=== PATIENT | male | born 1955 | race Caucasian/White ===

== ENCOUNTER 2024-04-28 15:11 | Emergency (ER) | payer MEDICARE, BC ==
[2024-04-28] MEDS ORDERED: Bacitracin Oint 1 GM U/D Packet TOP ONE (15:54)
[2024-04-28] MEDS: Lidocaine 1% 5 ML VIAL INJECT ONE (16:00)
[2024-04-28] MEDS: Diphtheria,Pertussis(Acell),Tetanus Vaccine 0.5 ML Syringe IM ONE (16:21)
== END 2024-04-28 16:12 | disposition home or self-care (01) ==
LOC: DL.ED 15:11
DX: S60.352A Superficial foreign body of left thumb, initial encounter (principal); I25.10 Atherosclerotic heart disease of native coronary artery without angina pectoris; I11.0 Hypertensive heart disease with heart failure; I50.9 Heart failure, unspecified; Z23 Encounter for immunization; Z86.16 Personal history of COVID-19; Z91.030 Bee allergy status
CPT/HCPCS: 90471; 90715; 99282; 99283-25; J3490